=== PATIENT | male | born 1985 | race Caucasian/White ===

== ENCOUNTER 2021-07-31 07:15 | Day surgery (SDC) | payer OTHER, SELFPAY ==
[~2021-07-31] VITALS: Ht 175.3 cm; Wt 76.7 kg
[2021-07-31] MEDS ORDERED: fentaNYL CITRATE 250 MCG/5 ML AMP IV ONE (09:00)
[2021-07-31] MEDS ORDERED: ONDANSETRON HCL 4 MG/2 ML VIAL IVP ONE (09:00)
[2021-07-31] MEDS ORDERED: METOPROLOL TARTRATE 5 MG/5 ML AMPUL IVP ONE (09:00)
[2021-07-31] MEDS ORDERED: SUGAMMADEX SODIUM 200 MG/2 ML VIAL IV ONE (09:00)
[2021-07-31] MEDS ORDERED: LIDOCAINE 2%, 20 ML MDV INJ ONE (09:00)
[2021-07-31] MEDS ORDERED: MIDAZOLAM HCL 5 MG/5 ML VIAL IVP ONE (09:00)
[2021-07-31] MEDS ORDERED: PROPOFOL 200MG/ 20ML VIAL (DIPRIVAN) IV ONE (09:00)
[2021-07-31] MEDS ORDERED: ROCURONIUM BROMIDE 10 MG/ML (ZEMURON) IV ONE (09:00)
[2021-07-31] MEDS ORDERED: DEXAMETHASONE SOD PHOSPHATE 4 MG/ML VIAL IVP ONE (09:00)
[2021-07-31] MEDS ORDERED: LR 1,000 ML IV.SOLN IV ONE (09:00)
[2021-07-31] MEDS ORDERED: DESFLURANE 15 MIN GAS INH ONE (09:00)
[2021-07-31] MEDS ORDERED: LR 1,000 ML IV SCH (09:15)
[2021-07-31] MEDS ORDERED: HYDROmorphone 1 MG/ML INJ. CARTRIDGE IVP PRN (09:15)
[2021-07-31] MEDS ORDERED: MIDAZOLAM HCL 2 MG/2 ML VIAL (VERSED) IVP PRN (09:15)
[2021-07-31] MEDS ORDERED: MEPERIDINE HCL/PF 25 MG/ML DISP.SYRIN IVP PRN (09:15)
[2021-07-31] MEDS ORDERED: METOCLOPRAMIDE HCL 10 MG/2 ML VIAL IVP PRN (09:15)
[2021-07-31] MEDS ORDERED: ACETAMINOPHEN I.V. 1000 MG 100 ML IV ONE (09:29)
[2021-07-31] MEDS: HYDROmorphone 1 MG/ML INJ. CARTRIDGE IVP PRN ×2 (10:20→11:14)
[2021-07-31] MEDS ORDERED: HYDROmorphone 1 MG/ML INJ. CARTRIDGE ONE (10:21)
[2021-07-31 12:36] VITALS: BP_SYST 127
== END 2021-07-31 12:20 | disposition home or self-care (01) ==
LOC: SDS 07:15 → SMU 07:17 → SDS 12:20 → EDSTATUS 12:49
PROVIDERS: ATTEND Otolaryngology
DX: S02.2XXA Fracture of nasal bones, initial encounter for closed fracture (principal); J34.2 Deviated nasal septum; G47.63 Sleep related bruxism; W19.XXXA Unspecified fall, initial encounter; Y93.89 Activity, other specified; Y92.89 Other specified places as the place of occurrence of the external cause; Y99.8 Other external cause status; Z20.822 Contact with and (suspected) exposure to COVID-19
CPT/HCPCS: 21315; 21337; C9399; J0131; J1100; J1170; J2001; J2250; J2405; J2704; J3010; J3465; J3490; J7120; U0003